=== PATIENT | female | born 1960 | race Caucasian/White ===

== ENCOUNTER 2016-07-01 10:57 | Day surgery (SDC) | payer BC ==
[~2016-07-01] VITALS: Ht 152.4 cm; Wt 65.8 kg
[~2016-07-01 10:57] MED LIST: ATARAX,VISTARIL50 MG PO; ATIVAN0.5 MG PO; ATORVASTATIN CA40 MG PO; ESCITALOPRAM OX20 MG PO; FISH OIL 1,0001 EAC7 PO; LIPITOR40 MG PO; LORAZEPAM0.5 MG PO; MIRTAZAPINE30 MG PO; VITAMIN B-650 MG PO; WOMEN'S DAILY1 EACH PO; ZOLOFT100 MG PO; ZYRTEC10 M3 PO
[2016-07-01 11:31] VITALS: BP 116/58
[2016-07-01 15:04] VITALS: BP 143/63
[2016-07-01 15:38] VITALS: BP 129/68
== END 2016-07-01 15:45 | disposition home or self-care (01) ==
LOC: SDC 10:57
DX: G56.01 Carpal tunnel syndrome, right upper limb (principal); G56.21 Lesion of ulnar nerve, right upper limb; E78.00 Pure hypercholesterolemia, unspecified; F41.9 Anxiety disorder, unspecified; Z80.8 Family history of malignant neoplasm of other organs or systems; Z80.1 Family history of malignant neoplasm of trachea, bronchus and lung; Z83.3 Family history of diabetes mellitus
CPT/HCPCS: J0131; J0690; J1100; J1885; J2250; J2405; J3010; S0020

== ENCOUNTER 2016-07-15 15:37 | Emergency (ER) | payer BC ==
[~2016-07-15] VITALS: Ht 152.4 cm; Wt 63.9 kg
[2016-07-15 16:49] LABS: HEMATOCRIT 37.4 % (36.0-46.0); MCH 29.8 PG (29.0-34.0); MCHC 33.4 G/DL (30.0-36.0); MEAN PLAT.VOLUME 9.6 uM^3 (9.5-12.4); PLATELET COUNT 403 K/uL (156-360); RBC DIS.WIDTH-SD 42.3 % (39-53); WHITE BLOOD COUNT 19.6 K/uL (4.1-10.2)
[2016-07-15 17:02] LABS: CHLORIDE 103 mEq/L (99-109); SODIUM 140 mEq/L (136-147)
[2016-07-15 17:04] LABS: GLUCOSE 96 mg/dL (70-99)
[2016-07-15 17:06] LABS: ANION GAP 12 MEQ/L (2-14)
[2016-07-15 17:08] LABS: GFR ESTIMATE (CALCULATED) > 59 mL/min/
[2016-07-15 17:09] LABS: UREA NITROGEN (BUN) 7 mg/dL (9-23)
[2016-07-15] MEDS ORDERED: CLEOCIN300 MG PO (20:14)
[2016-07-15 21:22] VITALS: BP 128/72
== END 2016-07-15 21:26 | disposition home or self-care (01) ==
LOC: EME 15:37
PROVIDERS: Nurse Practitioner Family
DX: J02.9 Acute pharyngitis, unspecified (principal); D72.829 Elevated white blood cell count, unspecified; E78.5 Hyperlipidemia, unspecified
CPT/HCPCS: 70491; 80048; 83605; 85027; 99281; 99285; J1100; J1885; J2270; J7040

== ENCOUNTER → 2017-01-13 | Outpatient (CLI) | payer BC ==
[~2017-01-13] MED LIST changes: +CLEOCIN300 MG PO
== END | disposition home or self-care (01) ==
LOC: CDC 10:11
DX: Z01.810 Encounter for preprocedural cardiovascular examination (principal); G56.02 Carpal tunnel syndrome, left upper limb; M67.442 Ganglion, left hand
CPT/HCPCS: 93000